=== PATIENT | female | born 1935 | race Caucasian/White ===

== ENCOUNTER 2017-01-20 09:48 | Outpatient (CLI) | payer MEDICARE, OTHER | END 2017-01-20 12:06 | LOC: D.MAMMO 09:48 | DX: Z12.31 Encounter for screening mammogram for malignant neoplasm of breast (principal) ==

== ENCOUNTER 2018-01-21 19:00 | Outpatient (CLI) | payer MEDICARE, OTHER | END 2018-01-21 20:00 | disposition home or self-care (01) | LOC: D.MAMMO 19:00 | DX: Z12.31 Encounter for screening mammogram for malignant neoplasm of breast (principal) ==